=== PATIENT | female | born 1975 | race Asian ===

== ENCOUNTER 2019-05-24 18:41 | Emergency (ER) | payer OTHER ==
[~2019-05-24] VITALS: Ht 162.6 cm; Wt 73.4 kg
--- NOTE | 2019-05-24 18:58 | NUR ---
"I HAVE A HEADACHE AND URGENT CARE SENT ME HERE BECAUSE MY BLOOD PRESSURE WAS HIGH. SBP 226" pt walked in the by [email or web address] .
--- NOTE | 2019-05-24 19:19 | NUR ---
BP IS STILL ELEVATED IN RM ERP AT BED SIDE FOR EVAL PT IS [id number] CALM DENIED [id number]
[2019-05-24] MEDS ORDERED: ACETAMINOPHEN 500 MG TABLET ONE (19:22)
[2019-05-24 19:26] LABS: BASOPHILS # (AUTO) 0.03 x10^3/uL (0-0.1); BASOPHILS % (AUTO) 0 % (0-1); EOSINOPHILS # (AUTO) 0.03 x10^3/uL (0-0.4); EOSINOPHILS % (AUTO) 0 % (1-7); LYMPHOCYTES # (AUTO) 2.12 x10^3/uL (1-3.4); LYMPHOCYTES % (AUTO) 23 % (22-44); MD NO; MEAN CORPUSCULAR HEMOGLOBIN 32.1 pg (27.0-34.8); MEAN CORPUSCULAR HGB CONC 33.2 g/dL (32.4-35.8); MEAN CORPUSCULAR VOLUME 96.7 fL (80-100); MEAN PLATELET VOLUME 7.8 fL (7.4-10.4); MONOCYTES # (AUTO) 0.67 x10^3/uL (0.2-0.8); MONOCYTES % (AUTO) 7 % (2-9); NEUTROPHILS # (AUTO) 6.25 x10^3/uL (1.8-6.8); NEUTROPHILS % (AUTO) 69 % (42-75); PLATELET COUNT 321 x10^3/uL (130-400); RED BLOOD COUNT 4.68 x10^6/uL (3.82-5.3); RED CELL DISTRIBUTION WIDTH 13.2 % (9.6-15.2)
[2019-05-24] MEDS ORDERED: ACETAMINOPHEN 500 MG TABLET PO ONE (19:30)
[2019-05-24 19:35] LABS: ALBUMIN 4.4 g/dL (3.4-5.0); ANION GAP 7 mmol/L (5-15); CALCIUM 9.9 mg/dL (8.5-10.1); CHLORIDE 106 mmol/L (98-107); CREATININE 0.94 mg/dL (0.55-1.02)
--- NOTE | 2019-05-24 19:55 | NUR ---
pt came back from [place]
[2019-05-24] MEDS ORDERED: PROCHLORPERAZINE 5 MG/ML, 2ML IVPush ONE (20:00)
[2019-05-24] MEDS ORDERED: DIPHENHYDRAMINE 25 MG CAPSULE PO ONE (20:00)
[2019-05-24] MEDS ORDERED: KETOROLAC 30 MG/1 ML IVPush ONE (20:00)
[2019-05-24] MEDS ORDERED: KETOROLAC 30 MG/1 ML ONE (20:02)
[2019-05-24] MEDS ORDERED: DIPHENHYDRAMINE 25 MG CAPSULE ONE (20:02)
[2019-05-24] MEDS ORDERED: PROCHLORPERAZINE 5 MG/ML, 2ML ONE (20:02)
--- NOTE | 2019-05-24 20:11 | NUR ---
medicated bp is still up md was notifed
--- NOTE | 2019-05-24 20:12 | NUR ---
was notitied no further order was received pt is asymptomatic at this time
--- NOTE | 2019-05-24 20:40 | NUR ---
bp was dropped a little bit erp was fine to let pt go home with prescription at this time
[2019-05-24 20:57] VITALS: BP 199/125
--- NOTE | 2019-05-24 20:57 | NUR ---
given dc instruction pt understood pt up ambulated to check out
== END 2019-05-24 21:00 ==
LOC: ED 20:54
DX: R51 Headache (principal); I16.9 Hypertensive crisis, unspecified; I10 Essential (primary) hypertension
CPT/HCPCS: 36415; 70450; 80048; 82040; 84703; 85025; 93005; 96374; 96375; 99284; J0780; J1885; Q0163